=== PATIENT | female | born 1930 | race Caucasian/White ===

== ENCOUNTER 2017-12-19 23:51 | Observation (INO) | payer OTHER, BC ==
[~2017-12-19] VITALS: Ht 170.2 cm; Wt 79.5 kg
[~2017-12-19 23:51] MED LIST: ASPIRIN EC325 MG PO; ASPIRIN81 M2 PO; CO Q-10400 MG PO; CRANBERRY 4001 EAC1 PO; DAILY VITE1 EAC1 PO; KETOROLAC TROME10 ML LEFT EYE; KRILL OIL 1,501 EACH PO; LO-DOSE ASPIRIN81 M1 PO; LYRICA25 MG PO; METOPROLOL SUCC50 MG PO; MYCOSTATIN 100,60 ML PO; NITROSTAT0.4 MG SL; RAMIPRIL2.5 MG PO; TEARS NATURALE-15 ML BOTH EYES; TYLENOL WITH C1 EACH PO; VALACYCLOVIR500 MG PO; VITAMIN D35000 UNIT PO; VITAMIN D5000 UNIT PO
[2017-12-20 00:47] LABS: HEMOGLOBIN 13.1 G/DL (11.9-15.5); MCH 31.3 PG (29.0-34.0); MCHC 33.6 G/DL (30.0-36.0); MCV 93.1 FL (83-99); PLATELET COUNT 140 K/uL (156-360); RBC DIS.WIDTH-CV 12.6 % (11.8-14.6); RBC DIS.WIDTH-SD 42.7 % (39-53); RED BLOOD COUNT 4.19 M/uL (3.80-5.20); WHITE BLOOD COUNT 4.2 K/uL (4.1-10.2)
[2017-12-20 01:02] LABS: ALBUMIN 3.7 g/dL (3.2-4.8)
[2017-12-20 01:03] LABS: CHLORIDE 102 mEq/L (99-109); POTASSIUM 4.4 mEq/L (3.7-5.4); SODIUM 138 mEq/L (136-147)
[2017-12-20 01:05] LABS: GLUCOSE 105 mg/dL (70-99); TOTAL PROTEIN 6.4 g/dL (6.4-8.3)
[2017-12-20 01:07] LABS: TOTAL BILIRUBIN 0.3 mg/dL (0.0-1.0)
[2017-12-20 01:08] LABS: ALKALINE PHOSPHATASE 62 IU/L (3-129)
[2017-12-20 01:09] LABS: GFR ESTIMATE (CALCULATED) 56 mL/min/
[2017-12-20 01:10] LABS: AST (GOT) 18 IU/L (2-34); UREA NITROGEN (BUN) 18 mg/dL (9-23)
[2017-12-20 01:12] LABS: ALT (GPT) 11 IU/L (3-49)
[2017-12-20 01:13] LABS: TROP-I INTERPRETATION NEGATIVE; TROPONIN-I < 0.01 ng/mL (0.0-0.30)
[2017-12-20 07:18] LABS: TROP-I INTERPRETATION NEGATIVE; TROPONIN-I 0.03 ng/mL (0.0-0.30)
[2017-12-20 07:30] LABS: HDL CHOLESTEROL 55 MG/DL (Desirable>=50); LDL CHOLESTEROL 136 mg/dL (Desirable<100); NON-HDL CHOLESTEROL 166 mg/dL (Desirable<160); TOTAL CHOLESTEROL 221 mg/dL (Desirable<200); TRIGLYCERIDES 151 MG/DL (Normal: <150)
[2017-12-20] MEDS ORDERED: AMOXICILLIN875 MG PO (08:17)
[2017-12-20 08:25] LABS: APPEARANCE CLEAR ((CLEAR)); BILIRUBIN NEGATIVE; BLOOD SMALL; COLOR STRAW ((YELLOW)); GLUCOSE (STRIP) NEGATIVE; KETONES NEGATIVE; LEUKOCYTES NEGATIVE; NITRITE NEGATIVE; PROTEIN (STRIP) NEGATIVE; SPECIFIC GRAVITY 1.008 (1.000-1.030); UROBILINOGEN 0.2 MG/DL (0.2-1.0)
[2017-12-20 08:36] LABS: BACTERIA NONE SEEN /HPF; EPITHELIAL CELLS NONE SEEN /HPF; MUCUS TRACE /LPF; RED BLOOD CELLS 0-5 /HPF (0-5); UCUL ADDED? NO; WHITE BLOOD CELLS 0-5 /HPF (0-5)
[2017-12-20 10:25] VITALS: BP 146/66
[2017-12-20 13:29] LABS: TROP-I INTERPRETATION NEGATIVE; TROPONIN-I < 0.01 ng/mL (0.0-0.30)
[2017-12-20] MEDS ORDERED: ONDANSETRON ODT4 MG PO (14:13)
[2017-12-20] MEDS ORDERED: PANTOPRAZOLE SO40 MG PO (14:14)
== END 2017-12-20 16:03 | disposition home or self-care (01) ==
LOC: EME 23:51 → EDOF 12-20 02:54 → ENRESERV 12-20 02:55 → 4SOUTH 12-20 10:11
PROVIDERS: Emergency Medicine; Physician Assistant Medical
DX: R07.9 Chest pain, unspecified (principal); I25.10 Atherosclerotic heart disease of native coronary artery without angina pectoris; I25.2 Old myocardial infarction; Z95.5 Presence of coronary angioplasty implant and graft; N39.0 Urinary tract infection, site not specified; I12.9 Hypertensive chronic kidney disease with stage 1 through stage 4 chronic kidney disease, or unspecified chronic kidney disease; N18.3 Chronic kidney disease, stage 3 (moderate); E78.5 Hyperlipidemia, unspecified; Z85.3 Personal history of malignant neoplasm of breast; Z86.19 Personal history of other infectious and parasitic diseases; Z90.11 Acquired absence of right breast and nipple; Z90.710 Acquired absence of both cervix and uterus; Z87.891 Personal history of nicotine dependence; Z79.82 Long term (current) use of aspirin; Z82.49 Family history of ischemic heart disease and other diseases of the circulatory system; Z88.2 Allergy status to sulfonamides
CPT/HCPCS: 71045; 80053; 80061; 81003; 84484; 85027; 85379; 93005; 99281; 99285; G0378; J1644; J7030

== ENCOUNTER 2018-01-12 15:52 | Observation (INO) | payer OTHER, BC ==
[~2018-01-12] VITALS: Ht 172.7 cm; Wt 77.4 kg
[~2018-01-12 15:52] MED LIST changes: +AMOXICILLIN875 MG PO; +ONDANSETRON ODT4 MG PO; +PANTOPRAZOLE SO40 MG PO
[2018-01-12 18:10] LABS: APPEARANCE CLEAR ((CLEAR)); BILIRUBIN NEGATIVE; BLOOD SMALL; COLOR YELLOW ((YELLOW)); GLUCOSE (STRIP) NEGATIVE; KETONES NEGATIVE; LEUKOCYTES NEGATIVE; NITRITE NEGATIVE; PROTEIN (STRIP) NEGATIVE; UROBILINOGEN 0.2 MG/DL (0.2-1.0)
[2018-01-12 19:02] LABS: BACTERIA RARE /HPF; EPITHELIAL CELLS NONE SEEN /HPF; HYALINE CASTS 0-5 /LPF; MUCUS TRACE /LPF; RED BLOOD CELLS 0-5 /HPF (0-5); UCUL ADDED? NO; WHITE BLOOD CELLS 0-5 /HPF (0-5)
[2018-01-12 19:08] LABS: HEMATOCRIT 39.1 % (36.0-46.0); HEMOGLOBIN 13.3 G/DL (11.9-15.5); MCV 94.2 FL (83-99); PLATELET COUNT 128 K/uL (156-360); RBC DIS.WIDTH-CV 12.9 % (11.8-14.6); RBC DIS.WIDTH-SD 44.3 % (39-53); RED BLOOD COUNT 4.15 M/uL (3.80-5.20); WHITE BLOOD COUNT 4.6 K/uL (4.1-10.2)
[2018-01-12 19:16] LABS: CHLORIDE 102 mEq/L (99-109); POTASSIUM 4.5 mEq/L (3.7-5.4); SODIUM 137 mEq/L (136-147)
[2018-01-12 19:17] LABS: GLUCOSE 90 mg/dL (70-99)
[2018-01-12 19:21] LABS: GFR ESTIMATE (CALCULATED) 56 mL/min/
[2018-01-12 19:22] LABS: UREA NITROGEN (BUN) 12 mg/dL (9-23)
[2018-01-12 19:27] LABS: TROP-I INTERPRETATION NEGATIVE; TROPONIN-I < 0.01 ng/mL (0.0-0.30)
[2018-01-12] MEDS ORDERED: OMEGA-3 KRILL1 EACH PO (21:24)
[2018-01-12] MEDS ORDERED: PROBIOTIC1 EAC1 PO (21:25)
[2018-01-12 22:22] VITALS: BP 115/54
[2018-01-13 01:08] LABS: TROP-I INTERPRETATION NEGATIVE; TROPONIN-I < 0.01 ng/mL (0.0-0.30)
[2018-01-13 04:00] VITALS: BP 118/64
[2018-01-13 06:16] LABS: HEMATOCRIT 39.1 % (36.0-46.0); HEMOGLOBIN 12.9 G/DL (11.9-15.5); MCH 30.8 PG (29.0-34.0); MCV 93.3 FL (83-99); PLATELET COUNT 131 K/uL (156-360); RBC DIS.WIDTH-CV 12.8 % (11.8-14.6); RBC DIS.WIDTH-SD 43.8 % (39-53); RED BLOOD COUNT 4.19 M/uL (3.80-5.20); WHITE BLOOD COUNT 3.6 K/uL (4.1-10.2)
[2018-01-13 06:34] LABS: TROP-I INTERPRETATION NEGATIVE; TROPONIN-I 0.01 ng/mL (0.0-0.30)
[2018-01-13 06:42] LABS: CHLORIDE 107 MEQ/L (99-109); CREATININE 0.9 MG/DL (0.6-1.3); GFR ESTIMATE (CALCULATED) > 59 mL/min/; GLUCOSE 87 mg/dL (70-99); POTASSIUM 4.1 MEQ/L (3.7-5.4); SODIUM 142 MEQ/L (136-147); UREA NITROGEN (BUN) 11 mg/dL (9-23)
[2018-01-13 08:43] VITALS: BP 101/54
[2018-01-13 11:06] VITALS: BP 114/58
[2018-01-13] MEDS ORDERED: SENNA PLUS TAB1 EACH PO (13:53)
[2018-01-13 15:02] VITALS: BP 117/58
== END 2018-01-13 17:45 | disposition home or self-care (01) ==
LOC: EME 15:52 → 4SOUTH 20:42 → EDOF 20:42 → ENRESERV 20:44 → 4SOUTH 22:05
PROVIDERS: Hospitalist; Physician Assistant
DX: R94.31 Abnormal electrocardiogram [ECG] [EKG] (principal); R00.8 Other abnormalities of heart beat; I25.10 Atherosclerotic heart disease of native coronary artery without angina pectoris; Z95.5 Presence of coronary angioplasty implant and graft; Z85.3 Personal history of malignant neoplasm of breast; K59.00 Constipation, unspecified; I25.2 Old myocardial infarction; I10 Essential (primary) hypertension; E78.5 Hyperlipidemia, unspecified; R59.0 Localized enlarged lymph nodes; Z90.11 Acquired absence of right breast and nipple; Z90.710 Acquired absence of both cervix and uterus; Z87.891 Personal history of nicotine dependence; Z82.49 Family history of ischemic heart disease and other diseases of the circulatory system; Z79.82 Long term (current) use of aspirin; Z79.01 Long term (current) use of anticoagulants; Z88.2 Allergy status to sulfonamides
CPT/HCPCS: 71046; 74176; 80048; 81003; 84484; 85027; 93005; 99281; 99285; G0378; J7030